=== PATIENT | male | born 1950 | race Caucasian/White ===

== ENCOUNTER 2020-11-28 00:36 | Inpatient (IN) | payer MEDICARE ==
[~2020-11-28] VITALS: Ht 175.3 cm; Wt 70.2 kg
[~2020-11-28 00:36] MED LIST: ATOR20TA37 PO; CARV6.2512 PO; CLOP75TA52 PO; ISOS30TA8 PO; ISOS60TA36 PO; LISI5TAB7 PO; NITR0.4T28 SL; PANT20TA4 PO; RANO500T2 PO
[2020-11-28 01:31] LABS: BASOPHILS % (AUTO) 0 % (0-1); EOSINOPHILS % (AUTO) 5 % (1-7); LYMPHOCYTES % (AUTO) 17 % (22-44); MEAN CORPUSCULAR HEMOGLOBIN 28.6 pg (27.5-34.5); MEAN CORPUSCULAR HGB CONC 32.4 g/dL (33.2-36.2); MEAN PLATELET VOLUME 10.6 fL (7.4-10.4); MONOCYTES % (AUTO) 9 % (2-9); NEUTROPHILS % (AUTO) 69 % (42-75); PLATELET COUNT 185 x10^3/uL (130-400); RED BLOOD COUNT 4.27 x10^6/uL (4.38-5.82); RED CELL DISTRIBUTION WIDTH 17.6 % (9.4-14.8)
[2020-11-28 01:34] LABS: ALANINE AMINOTRANSFERASE 69 U/L (12-78); ALBUMIN 3.9 g/dL (3.4-5.0); ANION GAP 9 mmol/L (5-15); CALCIUM 8.3 mg/dL (8.5-10.1); CHLORIDE 112 mmol/L (98-107); CREATININE 1.85 mg/dL (0.7-1.3)
[2020-11-28 01:36] LABS: MD NO
[2020-11-28 01:38] LABS: ALKALINE PHOSPHATASE 109 U/L (45-117); BILIRUBIN,TOTAL 1.6 mg/dL (0.2-1.0); TOTAL PROTEIN 7.2 g/dL (6.4-8.2); TROPONIN I < 0.015 ng/mL (0.000-0.045)
[2020-11-28] MEDS ORDERED: TAMS-11 PO (01:39)
[2020-11-28] MEDS ORDERED: LISI-170 PO (01:39)
[2020-11-28] MEDS ORDERED: AMIO200T42 PO (01:39)
[2020-11-28] MEDS ORDERED: METO50TA82 PO (01:39)
[2020-11-28] MEDS ORDERED: METH-639 PO (01:39)
[2020-11-28] MEDS ORDERED: ATOR-2 PO (01:39)
[2020-11-28] MEDS ORDERED: GABA100C PO (01:39)
[2020-11-28] MEDS ORDERED: PANT40TA6 PO (01:39)
[2020-11-28] MEDS ORDERED: LEVO125T5 PO (01:39)
--- NOTE | 2020-11-28 01:46 | NUR ---
pt here for chest pain and sob, pt has history of stent placement 2 months ago and has a pacemaker. pt sitting on side of bed to breathe better at this time. pt has history of mental disability, unable to recall name at this time. pt gave number for counselor [facility] [phone]. pt states to call them in the morning for more information on pt's history. pt states to not call at this time.
[2020-11-28] MEDS ORDERED: ONDANSETRON 2MG/ML, 2ML ONE (01:51)
[2020-11-28] MEDS ORDERED: MORPHINE SULFATE 4 MG/ML, 1ML ONE (01:52)
[2020-11-28] MEDS ORDERED: ONDANSETRON 2MG/ML, 2ML IVPush PRN ×3 (02:00→06:30)
[2020-11-28] MEDS ORDERED: MORPHINE SULFATE 4 MG/ML, 1ML IVPush PRN (02:00)
--- NOTE | 2020-11-28 02:05 | NUR ---
pt medicated for pain per [facility], monitors in place, no other needs at this time
--- NOTE | 2020-11-28 02:44 | NUR ---
report given to lauren whatley
[2020-11-28] MEDS ORDERED: ISOS120T4 PO (03:17)
[2020-11-28 03:26] VITALS: BP 158/87
[2020-11-28] MEDS ORDERED: LABETALOL 5MG/ML, 20ML IVPush PRN (06:30)
[2020-11-28] MEDS ORDERED: MAALOX/HYOSCYAMINE/LIDOCAINE 45 ML BTL PO ONE (06:30)
[2020-11-28] MEDS ORDERED: morphine SULFATE 10 MG/ML, 1ML IV PRN (06:30)
[2020-11-28 07:20] LABS: TROPONIN I < 0.015 ng/mL (0.000-0.045)
[2020-11-28 10:40] VITALS: BP 155/98
[2020-11-28] MEDS: ACETAMINOPHEN 325 MG TABLET PO PRN ×2 (10:54→18:14)
[2020-11-28 12:13] LABS: TROPONIN I < 0.015 ng/mL (0.000-0.045)
[2020-11-28 14:00] VITALS: BP 154/82
[2020-11-28 17:05] VITALS: BP 169/95
[2020-11-28] MEDS: FUROSEMIDE 40 MG/4 ML IV SCH (17:07)
[2020-11-28 20:33] VITALS: BP 129/74
[2020-11-29 03:51] VITALS: BP 131/73
[2020-11-29 04:58] LABS: BASOPHILS % (AUTO) 1 % (0-1); EOSINOPHILS % (AUTO) 5 % (1-7); LYMPHOCYTES % (AUTO) 13 % (22-44); MEAN CORPUSCULAR HEMOGLOBIN 28.7 pg (27.5-34.5); MEAN CORPUSCULAR HGB CONC 32.2 g/dL (33.2-36.2); MEAN PLATELET VOLUME 10.8 fL (7.4-10.4); MONOCYTES % (AUTO) 7 % (2-9); NEUTROPHILS % (AUTO) 74 % (42-75); PLATELET COUNT 149 x10^3/uL (130-400); RED BLOOD COUNT 3.79 x10^6/uL (4.38-5.82); RED CELL DISTRIBUTION WIDTH 16.8 % (9.4-14.8)
[2020-11-29 04:59] LABS: MD NO
[2020-11-29 05:00] LABS: ANION GAP 4 mmol/L (5-15); CALCIUM 8.2 mg/dL (8.5-10.1); CHLORIDE 110 mmol/L (98-107)
[2020-11-29 05:04] LABS: CHOL/HDL RATIO 2.5; CHOLESTEROL, TOTAL 111 mg/dL (140-239); CREATININE 1.54 mg/dL (0.7-1.3); HDL CHOL % 41 % (26-37); HDL CHOLESTEROL (DIRECT) 45 mg/dL (40-60); LDL CHOLESTEROL,CALCULATED 48 mg/dL (54-169); LDL/HDL RATIO 1.1 (0.5-3.0); TRIGLYCERIDES 90 mg/dL (50-200); VLDL CHOLESTEROL 18 mg/dL (0-25)
[2020-11-29 06:46] VITALS: BP 157/97
[2020-11-29 07:35] VITALS: BP 166/92
[2020-11-29] MEDS: FUROSEMIDE 40 MG/4 ML IV SCH ×2 (07:36→17:26)
[2020-11-29] MEDS ORDERED: REGADENOSON 0.4 MG/5 ML SYRINGE ONE (08:11)
[2020-11-29 14:16] VITALS: BP 149/80
[2020-11-29 17:23] VITALS: BP 157/92
[2020-11-29 20:00] VITALS: BP 154/83
[2020-11-30] VITALS (7 sets, daily range): BP systolic 94–153; BP diastolic 60–90
[2020-11-30] MEDS: FUROSEMIDE 40 MG/4 ML IV SCH ×2 (08:20→16:51)
[2020-11-30] MEDS: CLOPIDOGREL 75 MG TABLET PO SCH (08:21)
[2020-11-30] MEDS ORDERED: NITROGLYCERIN SINGLE TAB 0.4 MG SL PRN (10:00)
[2020-11-30] MEDS ORDERED: METHOCARBAMOL 500 MG TABLET PO PRN (10:00)
[2020-11-30] MEDS ORDERED: CLOPIDOGREL 75 MG TABLET PO SCH (10:00)
[2020-11-30] MEDS: AMIODARONE 200 MG TABLET PO SCH (10:21)
[2020-11-30] MEDS: ATORVASTATIN 80 MG TABLET PO SCH (10:21)
[2020-11-30] MEDS: PANTOPRAZOLE 40MG TABLET PO SCH (10:21)
[2020-11-30] MEDS: ISOSORBIDE MONONITRATE ER 30 MG TABLET PO SCH (10:21)
[2020-11-30] MEDS: METOPROLOL TARTRATE 50 MG TAB PO SCH ×2 (10:21→21:00)
[2020-11-30] MEDS: RANOLAZINE 500 MG TAB.ER.12H PO SCH ×2 (10:23→20:13)
[2020-11-30] MEDS: LEVOTHYROXINE 125 MCG TABLET PO SCH (11:47)
[2020-11-30] MEDS: LISINOPRIL 20 MG TABLET PO SCH (11:48)
[2020-11-30] MEDS ORDERED: FUROSEMIDE 40 MG/4 ML IV ONE (16:00)
[2020-11-30] MEDS ORDERED: CARVEDILOL 6.25 MG TABLET PO SCH (18:00)
[2020-11-30] MEDS: GABAPENTIN 100 MG CAPSULE PO SCH (20:13)
[2020-11-30] MEDS: TAMSULOSIN 0.4 MG CAP.ER.24H PO SCH (20:13)
[2020-12-01 01:32] VITALS: BP 112/70
[2020-12-01 05:32] LABS: ALBUMIN 3.2 g/dL (3.4-5.0); ANION GAP 6 mmol/L (5-15); BASOPHILS % (AUTO) 1 % (0-1); CALCIUM 8.4 mg/dL (8.5-10.1); CHLORIDE 101 mmol/L (98-107); EOSINOPHILS % (AUTO) 6 % (1-7); LYMPHOCYTES % (AUTO) 13 % (22-44); MEAN CORPUSCULAR HGB CONC 32.4 g/dL (33.2-36.2); MONOCYTES % (AUTO) 9 % (2-9); NEUTROPHILS % (AUTO) 71 % (42-75); PLATELET COUNT 180 x10^3/uL (130-400); RED CELL DISTRIBUTION WIDTH 16.8 % (9.4-14.8)
[2020-12-01 05:33] LABS: CREATININE 1.68 mg/dL (0.7-1.3); MD NO
[2020-12-01] MEDS: PANTOPRAZOLE 40MG TABLET PO SCH (06:18)
[2020-12-01 07:20] VITALS: BP 119/71
[2020-12-01 07:50] VITALS: BP 147/83
[2020-12-01] MEDS: LEVOTHYROXINE 125 MCG TABLET PO SCH (07:54)
[2020-12-01] MEDS: AMIODARONE 200 MG TABLET PO SCH (07:54)
[2020-12-01] MEDS: ISOSORBIDE MONONITRATE ER 30 MG TABLET PO SCH (07:54)
[2020-12-01] MEDS: METOPROLOL TARTRATE 50 MG TAB PO SCH ×2 (07:55→20:50)
[2020-12-01] MEDS: CLOPIDOGREL 75 MG TABLET PO SCH (07:57)
[2020-12-01] MEDS: FUROSEMIDE 40 MG/4 ML IV SCH ×2 (07:58→17:49)
[2020-12-01] MEDS: RANOLAZINE 500 MG TAB.ER.12H PO SCH ×2 (07:58→20:50)
[2020-12-01] MEDS: LISINOPRIL 20 MG TABLET PO SCH (10:11)
[2020-12-01] MEDS: POTASSIUM CHLORIDE 20 MEQ TAB.ER.PRT PO SCH ×2 (10:12→17:47)
[2020-12-01 14:05] VITALS: BP 104/57
[2020-12-01 20:44] VITALS: BP 106/59
[2020-12-01] MEDS: GABAPENTIN 100 MG CAPSULE PO SCH (20:50)
[2020-12-01] MEDS: TAMSULOSIN 0.4 MG CAP.ER.24H PO SCH (20:51)
[2020-12-01] MEDS: ATORVASTATIN 80 MG TABLET PO SCH (20:52)
[2020-12-02 00:28] VITALS: BP 134/81
[2020-12-02 04:50] LABS: BASOPHILS % (AUTO) 1 % (0-1); EOSINOPHILS % (AUTO) 7 % (1-7); LYMPHOCYTES % (AUTO) 13 % (22-44); MEAN CORPUSCULAR HEMOGLOBIN 28.5 pg (27.5-34.5); MEAN CORPUSCULAR HGB CONC 33.1 g/dL (33.2-36.2); MONOCYTES % (AUTO) 11 % (2-9); NEUTROPHILS % (AUTO) 69 % (42-75); PLATELET COUNT 178 x10^3/uL (130-400); RED BLOOD COUNT 4.37 x10^6/uL (4.38-5.82); RED CELL DISTRIBUTION WIDTH 16.7 % (9.4-14.8)
[2020-12-02 04:52] LABS: MD NO
[2020-12-02 05:03] LABS: ALBUMIN 3.1 g/dL (3.4-5.0); ANION GAP 6 mmol/L (5-15); CALCIUM 8.2 mg/dL (8.5-10.1); CHLORIDE 100 mmol/L (98-107); CREATININE 1.89 mg/dL (0.7-1.3)
[2020-12-02] MEDS: PANTOPRAZOLE 40MG TABLET PO SCH (05:25)
[2020-12-02] MEDS: FUROSEMIDE 40 MG/4 ML IV SCH (07:48)
[2020-12-02] MEDS: LEVOTHYROXINE 125 MCG TABLET PO SCH (07:49)
[2020-12-02] MEDS: LISINOPRIL 20 MG TABLET PO SCH (07:50)
[2020-12-02] MEDS: AMIODARONE 200 MG TABLET PO SCH (07:50)
[2020-12-02] MEDS: POTASSIUM CHLORIDE 20 MEQ TAB.ER.PRT PO SCH ×2 (07:50→17:00)
[2020-12-02] MEDS: ISOSORBIDE MONONITRATE ER 30 MG TABLET PO SCH (07:50)
[2020-12-02] MEDS: METOPROLOL TARTRATE 50 MG TAB PO SCH (07:51)
[2020-12-02] MEDS: CLOPIDOGREL 75 MG TABLET PO SCH (07:51)
[2020-12-02] MEDS: RANOLAZINE 500 MG TAB.ER.12H PO SCH (07:51)
[2020-12-02 08:10] VITALS: BP 96/60
[2020-12-02 16:42] VITALS: BP 162/97
[2020-12-02] MEDS ORDERED: FUROSEMIDE 40 MG TABLET PO SCH (17:00)
== END 2020-12-02 21:52 | disposition home or self-care (01) | DRG 291 ==
LOC: ED 01:33 → EDIP 01:59 → 5SO 03:02
PROVIDERS: ADMIT Family Medicine; ATTEND Family Medicine
DX: I13.0 Hypertensive heart and chronic kidney disease with heart failure and stage 1 through stage 4 chronic kidney disease, or unspecified chronic kidney disease (principal); I50.23 Acute on chronic systolic (congestive) heart failure; J96.00 Acute respiratory failure, unspecified whether with hypoxia or hypercapnia; N17.0 Acute kidney failure with tubular necrosis; I24.9 Acute ischemic heart disease, unspecified; E78.5 Hyperlipidemia, unspecified; I08.1 Rheumatic disorders of both mitral and tricuspid valves; I25.110 Atherosclerotic heart disease of native coronary artery with unstable angina pectoris; I25.5 Ischemic cardiomyopathy; K21.9 Gastro-esophageal reflux disease without esophagitis; G31.84 Mild cognitive impairment of uncertain or unknown etiology; N18.9 Chronic kidney disease, unspecified; I25.2 Old myocardial infarction; Z86.73 Personal history of transient ischemic attack (TIA), and cerebral infarction without residual deficits; Z95.5 Presence of coronary angioplasty implant and graft; Z95.810 Presence of automatic (implantable) cardiac defibrillator
CPT/HCPCS: 36415; 71045; 76705; 78452; 80048; 80053; 80061; 80069; 83735; 83880; 84145; 84484; 85025; 93005; 93017; 93306; 96374; 96375; 99285; G0378; J1940; J2405; J2785; A9502; J2270